=== PATIENT | female | born 1970 | race Caucasian/White ===

== ENCOUNTER 2018-02-17 13:00 | Inpatient (IN) | payer OTHER ==
[~2018-02-17] VITALS: Ht 165.1 cm; Wt 81.6 kg
== END 2018-02-26 12:44 | DRG 743 ==
LOC: O/R 02-25 06:10 → SURH 02-25 13:00 → OB/GYN 02-25 13:25
PROVIDERS: Obstetrics & Gynecology Gynecology; Urology
PROC: 0UT74ZZ Resection of Bilateral Fallopian Tubes, Percutaneous Endoscopic Approach (ICD-10-PCS; 2018-02-25)
PROC: 0TJ98ZZ Inspection of Ureter, Via Natural or Artificial Opening Endoscopic (ICD-10-PCS; 2018-02-25)
PROC: 0UT94ZZ Resection of Uterus, Percutaneous Endoscopic Approach (ICD-10-PCS; principal; 2018-02-25 10:00)
PROC: 0UT24ZZ Resection of Bilateral Ovaries, Percutaneous Endoscopic Approach (ICD-10-PCS; 2018-02-25 10:00)
DX: D25.1 Intramural leiomyoma of uterus (principal); N92.4 Excessive bleeding in the premenopausal period; Z17.0 Estrogen receptor positive status [ER+]; Z53.09 Procedure and treatment not carried out because of other contraindication; N88.8 Other specified noninflammatory disorders of cervix uteri; N80.0 Endometriosis of uterus; Z85.3 Personal history of malignant neoplasm of breast